=== PATIENT | female | born 1950 | race Caucasian/White ===

== ENCOUNTER 2017-09-05 12:42 | Outpatient (CLI) | payer MEDICARE, OTHER ==
[~2017-09-05 12:42] MED LIST: Iopamidol 370 76% 100 ML VIAL ONE
--- NOTE | 2017-09-05 15:37 | CT ---
CT NECK WITH CONTRAST: Technique: Multiple axial tomograms were obtained through the neck with IV enhancement. Indications: Recent diagnosis of melanoma in the patient's scalp. Exam is performed to assess for cer vical adenopathy. FINDINGS: The parotid glands, sublingual glands, and submandibular glands appear unremarkable. The thyroid is unremarkable. Nasopharynx unremarkable. Oropharynx unremarkable. Waldeyer's ring appears symmetric. Base of tongue unremarkable. Hypopharynx unremarkable. Larynx unremarkable. Review of lymph node levels reveal tiny level I submandibular nodes which are subcentimeter bilateral ly. There are tiny nonspecific level II jugular digastric nodes which are subcentimeter bilaterally. No significant level II, level IV, or level V nodes. There are a few scattered tiny subcentimeter lev el V nodes. Paranasal sinuses are well aerated. Mastoids are well aerated. Mild degenerative changes in the cervi jared spine with anterior osteophytes and loss of disc space at C4-5, C5-6, and C6-7 levels. Lung apice s appear clear. IMPRESSION: Unremarkable CT neck. No evidence of cervical adenopathy. POS: [facility]
--- NOTE | 2017-09-05 15:41 | CT ---
CT OF THE THORAX WITH IV CONTRAST: INDICATION: History of melanoma. COMPARISON: Comparison was made with the CT of the abdomen and pelvis dated 10/29/02. FINDINGS: There is mild scattered centrilobular emphysema. There is a tiny sub-4 mm pulmonary nodule within th e right upper lobe on image 32 of series 5. There is a tiny subpleural pulmonary nodule within the r ight lower lobe on image 31 of series 5. There is some subsegmental atelectasis within the lingula. No enlarged lymph nodes are evident. There are pulmonary artery calcifications. Small hiatal herni a. There are small cysts involving both kidneys. There is an age-indeterminate compression abnormal ity of T12. There is subtle lucency seen within the vertebral body of T12 on image 105. One area of lucency seen just below the level of the subchondral end plate measures 1 cm. An additional area of lucency is seen measuring 1.1 cm. The patient does have diffuse osteopenia. No additional focal os seous lesion is evident. IMPRESSION: 1. Question of possible pathologic wedge compression abnormality of T12. Recommend MRI of the thor acic spine with and without contrast to evaluate for possible osseous metastatic disease. 2. Tiny sub-4 mm nodule of the right upper lobe and lower lobe. Followup in 3 months is recommended . 3. Scattered emphysema. 4. Small hiatal hernia. 5. Small renal cyst. POS: [facility]
== END 2017-09-05 12:43 | disposition home or self-care (01) ==
LOC: SCSCT 12:42
PROVIDERS: ATTEND Otolaryngology Plastic Surgery within the Head & Neck
DX: C43.9 Malignant melanoma of skin, unspecified (principal); J43.9 Emphysema, unspecified; K44.9 Diaphragmatic hernia without obstruction or gangrene; N28.1 Cyst of kidney, acquired
CPT/HCPCS: 70491; 71260; 82565